=== PATIENT | male | born 1985 | race Caucasian/White ===

== ENCOUNTER 2020-03-09 12:29 | Emergency (ER) | payer OTHER ==
[~2020-03-09] VITALS: Ht 180.3 cm; Wt 142.7 kg
--- NOTE | 2020-03-09 12:39 | NUR ---
Notified Dr. Tenorio regarding potential for stroke, Dr. Tenorio stated to hold orders until he was able to see patient. Cody Willk clerk pages out stroke alert level 2, due to right lateral facial droop and numbness.
[2020-03-09] MEDS ORDERED: predniSONE 20 mg tablet PO ONE (13:00)
[2020-03-09] MEDS ORDERED: PRED10TA23 PO (13:48)
[2020-03-09 14:01] VITALS: BP 143/86
== END 2020-03-09 13:59 | disposition home or self-care (01) ==
LOC: ER 12:30
DX: G51.0 Bell's palsy (principal); F17.200 Nicotine dependence, unspecified, uncomplicated; Z79.899 Other long term (current) drug therapy
CPT/HCPCS: 70450; 93005; 99284; J7512